=== PATIENT | male | born 1955 | race Caucasian/White ===

== ENCOUNTER 2024-07-03 07:09 | Day surgery (SDC) | payer MEDICARE, BC, SELFPAY ==
[2024-07-03] VITALS (25 sets, daily range): BP systolic 96–137; BP diastolic 67–91; PULSE 44–74; RESP 14–18; TEMP 36.3–36.7; O2SAT 92–98; BMI 27.9
[2024-07-03] MEDS: LACTATED RINGERS 1000 ML 1,000 ML 100 ML IV (07:15)
[2024-07-03] MEDS: OXYCODONE (CR) 10 MG TAB.ER.12H PO (07:15)
[2024-07-03] MEDS: ACETAMINOPHEN 500 MG TABLET 1000 MG PO ×3 (08:00→20:35)
[2024-07-03] MEDS: CELECOXIB 200 MG CAPSULE PO (08:01)
[2024-07-03] MEDS: SODIUM CHLORIDE 0.9 % (FLUSH) 10 ML SYRINGE IVF (08:02)
[2024-07-03] MEDS: fentaNYL 100 MCG/2 ML inj IVP (08:52)
[2024-07-03] MEDS: MIDAZOLAM HCL 1 MG/ML inj IVP (08:52)
--- NOTE | 2024-07-03 08:52 | SUR.PREOP ---
TIME?OUT:?0851 PT/Rose Ladd RN/Dr. Nikhil MDA?VERIFICATION?OF?SURGICAL?SITE right knee,?PROCEDURE,?AND?CONSENT OBTAINED?PRIOR?TO?INVASIVE?PROCEDURE.
--- NOTE | 2024-07-03 08:56 | P.ANES_ITS ---
Anesthesia Charges Start Date/Time Anesthesia Start Date: 07/03/24 Anesthesia Start Time: 09:14 Stop Date/Time Anesthesia Stop Date: 07/03/24 Anesthesia Stop Time: 11:25 Coding CPT Codes CPT Codes: ANESTH KNEE ARTHROPLASTY - 43764 ([id number]) P3 - PATIENT W/SEVERE SYS DISEASE, QK - LIFTER DRIVER 2-4 CNCRNT ANES PROC, QX - STAFF PHARMACIST HOSPITAL SVC W/ MD MED DIRECTION
--- NOTE | 2024-07-03 08:56 | W.ANESCHARGE ---
Anesthesia Charges Start Date/Time Anesthesia Start Date: 07/03/24 Anesthesia Start Time: 09:14 Stop Date/Time Anesthesia Stop Date: 07/03/24 Anesthesia Stop Time: 11:25 Coding CPT Codes CPT Codes: ANESTH KNEE ARTHROPLASTY - 81117 ([id number]) P3 - PATIENT W/SEVERE SYS DISEASE, QK - UPPER AND BOTTOM LACER HAND 2-4 CNCRNT ANES PROC, QX - PAPER CUTTER OPERATOR SVC W/ MD MED DIRECTION
--- NOTE | 2024-07-03 08:57 | W.PM.NB ---
Nerve Block Nerve Block Time Seen by Provider: 08:55 Date Seen: 07/03/24 Type of block requested by surgeon for post-operative analgesia: adductor canal Side: right Time out performed: Yes Verification of patient name: Yes Verification of date of : Yes Site marking: site marked Name of person performing procedure: Nikhil Continuous monitoring Was continuous monitoring of O2 sat, B/P, front desk monitor, recorded every 15 minutes?: Yes Procedure Checklist: sterile prep, needles and gloves Ultrasound guided. Images saved: Yes Medications given in 5ml increments after negative aspiration: Marcaine %: 0.25 mL: 15 Needle gauge: 20 Precedex (mcg): 25 Patient tolerated procedure well: Yes Block Charges Block Charge (with Pro Fee): Femoral Nerve Use of Ultrasound Machine for Block: Yes- US Guidance/pain block
--- NOTE | 2024-07-03 08:57 | W.PM.NB ---
Nerve Block Nerve Block Time Seen by Provider: 08:55 Date Seen: 07/03/24 Type of block requested by surgeon for post-operative analgesia: geniculars Side: right Time out performed: Yes Verification of patient name: Yes Verification of date of : Yes Site marking: site marked Name of person performing procedure: Nikhil Continuous monitoring Was continuous monitoring of O2 sat, B/P, sports cartoonist, recorded every 15 minutes?: Yes Procedure Checklist: sterile prep, needles and gloves Ultrasound guided. Images saved: Yes Medications given in 5ml increments after negative aspiration: Marcaine %: 0.25 mL: 9 Needle gauge: 25 Patient tolerated procedure well: Yes Block Charges Block Charge (with Pro Fee): Genicular Nerve Block
[2024-07-03] MEDS: CEFAZOLIN 1 GM inj IVP (09:27)
[2024-07-03] MEDS: TRANEXAMIC ACID 100 MG/ML INJ 1000 MG IV (09:29)
--- NOTE | 2024-07-03 10:54 | CRLHL7_ITS ---
For Patients: As a result of the Cures Act, medical imaging exams and procedure reports are released immediately into your electronic medical record. You may view this report before your referring provider. If you have questions, please contact your health care provider. Indication: post op TKA Technique: Two views right knee Findings/Impression: Hardware from a right total knee arthroplasty is in satisfactory position. Bone alignment is normal. No sign of acute fracture. Postop changes are within normal limits. Dictated by Fermin Burton MD @ 07/04/2024 10:47:00 AM (Electronically Signed)
--- NOTE | 2024-07-03 10:57 | P.ORPRC_ITS ---
Procedure Note Date of procedure: 07/03/24 Procedure: PREOPERATIVE DIAGNOSIS: Right knee osteoarthritis POSTOPERATIVE DIAGNOSIS: Right knee osteoarthritis NAME OF OPERATION: Right total knee arthroplasty SURGEON: Neal Bose MD GROUP ART SUPERVISOR: ESTELLE Muir Elizabeth Oss, MS4 ANESTHESIA: Spinal ESTIMATED BLOOD LOSS: 0 mL COMPLICATIONS: None SPECIMENS: None DRAINS: None PREOPERATIVE ANTIBIOTICS: Ancef 2 grams IMPLANTS: 1. J&J Attune # 8 posterior stabilized femur 2. # 9 fixed-bearing tibia 3. # 8 posterior stabilized, 6 mm fixed-bearing polyethylene 4. 41 patella INDICATIONS: The patient is a 69-year-old with a longstanding history of severe, unrelenting right knee pain secondary to end-stage (grade IV) right knee osteoarthritis. Despite appropriate nonoperative management, including activity modification, anti-inflammatories, [id number] pain medication, bracing, physical therapy, and injections they continue to have pain and disability. Operative intervention was offered. The risks, benefits and expected outcomes were discussed in detail. These included but were not limited to: Infection, bleeding, injury to blood vessel or nerve, venous thromboembolism. All questions were answered to their satisfaction. Use of an financial administrative assistant was necessary throughout the case for patient positioning and safety, soft tissue retraction, and closure. PROCEDURE: Spinal anesthesia was administered. The patient was placed supine on the operating table. The financial administrative assistant made sure the patient was positioned appropriately. The lower extremity was prepped and draped in the usual sterile fashion. The limb was exsanguinated with the Alex bandage. The pneumatic tourniquet was inflated to 300 mmHg. A standard anterior incision was made with the knee in flexion. Subcutaneous dissection was sharply taken through fascial layer #1. Full-thickness medial and lateral flaps were elevated. The financial administrative assistant retracted the soft tissues and protected them throughout the case. A standard subvastus approach was made. The patella was subluxed. The infrapatellar fat pad was preserved. The menisci and cruciate ligaments were sharply d?brided. Marginal osteophytes were d?brided with the rongeur. The drill was used to penetrate the femoral canal. The canal was aspirated and irrigated with pulse lavage. The intramedullary femoral guide was placed for a 5-degree valgus cut, removing 12 mm off the distal femur. The saw was used to make the cut. Whitesides line and the trans epicondylar axis were marked. The femoral sizing guide was pinned onto the distal femur. Three degrees of external rotation nicely parallels the transepicondylar axis. Pins were placed for posterior referencing. The four-in-one cutting guide was pinned onto the distal femur. The anterior, posterior, and chamfer cuts were made. The financial administrative assistant protected the collateral ligaments. The box cutting guide was pinned. The box cuts were made. The boxed trial was placed and was an excellent fit. Drill holes for the lugs were made. Attention was then turned to the proximal tibia. The extramedullary tibial guide was placed for a neutral varus/valgus cut with 5 degrees of posterior slope, removing 2 mm based off the medial tibial surface. The financial administrative assistant pro tected the collateral ligaments and the neurovascular bundle. The saw was used to make the cut. Trial components were placed. The knee was nicely balanced in both flexion and extension. The trial components were removed. The tray was placed in appropriate rotation, parallel to our tibial cutting pins. It was pinned by the financial administrative assistant and the drill and the punch were used. The tray was removed. The punch was used again. We placed a bone plug in the femoral canal. Attention was then turned to the patella. [place] patellar thickness was 22 mm. The lobster claw resection guide was used with the 7.5 mm ankit. The saw was used to make the cut. Drill holes were made by the financial administrative assistant. The trial was placed and was an excellent fit. Cancellous surfaces were irrigated with pulse lavage and thoroughly dried by the financial administrative assistant. We cemented the tibial component, then the femoral component. We impacted the 6 mm polyethylene onto the tibial tray. The knee was brought into full extension. We then cemented the patellar component. Excessive cement was removed. The cement was allowed to harden. The knee was taken through a range of motion and was found to be nicely balanced in both flexion and extension. The patella tracks centrally. The financial administrative assistant did a three minute dilute Betadine solution soak. The financial administrative assistant irrigated the wound with 3 liters of normal saline via pulse lavage. The financial administrative assistant reapproximated the extensor mechanism with #1 Vicryl in an interrupted [id number] fashion. The financial administrative assistant then ran the extensor mechanism with a #1 PDO Stratafix. The financial administrative assistant closed the subcutaneous tissues with a 3-0 Stratafix and the skin with a running 3-0 Stratafix in a subcuticular fashion. Glue was used to seal the skin. The financial administrative assistant placed a dry dressing. Sponge and needle counts were correct x2. The patient tolerated the procedure well. There were no apparent complications. They were carefully transferred to the hospital bed and taken to the postanest hesia care unit in satisfactory condition. PLAN: The patient will be mobilized with physical therapy. Aspirin will be used for DVT prophylaxis. They will be discharged to home once medically appr opriate.
--- NOTE | 2024-07-03 11:32 | P.ANES_ITS ---
Anesthesia Charges Start Date/Time Anesthesia Start Date: 07/03/24 Anesthesia Start Time: 09:14 Stop Date/Time Anesthesia Stop Date: 07/03/24 Anesthesia Stop Time: 11:25 Coding CPT Codes CPT Codes: ANESTH KNEE ARTHROPLASTY - 17989 ([id number]) P3 - PATIENT W/SEVERE SYS DISEASE, QK - BAKER BISCUIT 2-4 CNCRNT ANES PROC, QX - CHAIRMAN & CO FOUNDER SVC W/ MD MED DIRECTION
--- NOTE | 2024-07-03 11:32 | W.ANESCHARGE ---
Anesthesia Charges Start Date/Time Anesthesia Start Date: 07/03/24 Anesthesia Start Time: 09:14 Stop Date/Time Anesthesia Stop Date: 07/03/24 Anesthesia Stop Time: 11:25 Coding CPT Codes CPT Codes: ANESTH KNEE ARTHROPLASTY - 95251 ([id number]) P3 - PATIENT W/SEVERE SYS DISEASE, QK - COMMERCIAL TIRE SERVICE TECHNICIAN 2-4 CNCRNT ANES PROC, QX - PHYSICAL SCIENCE TEACHER SVC W/ MD MED DIRECTION
[2024-07-03] MEDS: OXYCODONE 5 MG TABLET PO ×3 (12:29→20:42)
[2024-07-03] MEDS: LACTATED RINGERS 1000 ML 1,000 ML 75 ML IV (12:30)
--- NOTE | 2024-07-03 14:12 | PM.IMCN1 ---
Date of Consult Consult date: 07/03/24 Primary Care Provider: Lori Salinas CNP Consult Narrative Narrative: Josue Enciso is a 69 year old male w Past medical history of heart failure with preserved ejection fraction, aortic dilatation, ascending, venous stasis, anxiety and depression. Pt has Hx of Right knee osteoarthritis s/p Right total knee arthroplasty today 07/03. The patient tolerated the procedure well. There were no apparent complications. Patient states that he does not have history of blood clots or bleeding, he is not on any anti- coagulation. When asked about chest discomfort or shortness of breath he said he does not have been now, but at baseline he has chest discomfort and shortness of breath on exertion. 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 Upon reviewing his chart, I found out that he had at Negative angiogram 03/2023. Coronary angiography was performed successfully via the right radial artery approach. This revealed no significant coronary artery disease in the codominant system. The left anterior descending artery was severely calcified, but contained no significant obstruction. Recommendation was cardiac MRI to further evaluate nonischemic HF. Talking to the patient he states that he is planning to do that cardiac MRI in the future. Echo a wk ago showed normal global systolic function with an estimated EF of 55 - 60%. Pt stopped aspirin 1 week prior to surgery & held all other meds this am except for effexor. Patient asked me if he will be charged/billed if he takes the medications that I am going to resume during his stay at the hospital, I talked to the pharmacist and discussed with Josue the risks of not taking medications and he agreed to take them. Review of Systems Status of ROS: Reports: 6 or more systems reviewed and unremarkable except as noted in History and below [facility] Medical History (Updated 07/03/24 @ 16:46 by Matilda Duval MD) Ascending aorta dilation ?I77.810 - Thoracic aortic ectasia (ICD-10) Sinus tachycardia ?R00.0 - Tachycardia, unspecified (ICD-10) Mitral valve insufficiency ?I34.0 - Nonrheumatic mitral (valve) insufficiency (ICD-10) CHF (congestive heart failure) ?I50.9 - Heart failure, unspecified (ICD-10) GERD (gastroesophageal reflux disease) ?K21.9 - Gastro-esophageal reflux disease without esophagitis (ICD-10) Major depressive disorder, single episode, moderate ?F32.1 - Major depressive disorder, single episode, moderate (ICD-10) Chronic HFrEF (heart failure with reduced ejection fraction) ?I50.22 - Chronic systolic (congestive) heart failure (ICD-10) Bilateral carpal tunnel syndrome ?G56.03 - Carpal tunnel syndrome, bilateral upper limbs (ICD-10) Arthritis, low back ?M47.819 - Spondylosis without myelopathy or radiculopathy, site unspecified (ICD-10) Primary osteoarthritis of right knee ?M17.11 - Unilateral primary osteoarthritis, right knee (ICD-10) Displacement of lumbar intervertebral disc without myelopathy ?M51.26 - Other intervertebral disc displacement, lumbar region (ICD-10) Arthritis of right shoulder region ?M19.011 - Primary osteoarthritis, right shoulder (ICD-10) Acquired valgus deformity knee ?M21.069 - Valgus deformity, not elsewhere classified, unspecified knee (ICD-10) Insomnia ?G47.00 - Insomnia, unspecified (ICD-10) Anxiety ?F41.9 - Anxiety disorder, unspecified (ICD-10) Vitamin D deficiency ?E55.9 - Vitamin D deficiency, unspecified (ICD-10) C. difficile enteritis (11/21/08) ?A04.72 - Enterocolitis due to Clostridium difficile, not specified as recurrent (ICD-10) IBS (irritable bowel syndrome) ?K58.9 - Irritable bowel syndrome, unspecified (ICD-10) Pilonidal fistula ?L05.92 - Pilonidal sinus without abscess (ICD-10) Elevated cholesterol ?E78.00 - Pure hypercholesterolemia, unspecified (ICD-10) Skin cancer ?C44.90 - Unspecified malignant neoplasm of skin, unspecified (ICD-10) Surgical History (Updated 07/03/24 @ 14:37 by Matilda Duval MD) Status post lumbar microdiscectomy (10/26/13) ?Z98.890 - Other specified postprocedural states (ICD-10) History of hemilaminectomy (09/11/13) ?Z98.890 - Other specified postprocedural states (ICD-10) History of repair of right rotator cuff (2005) ?Z98.890 - Other specified postprocedural states (ICD-10) History of esophagogastroduodenoscopy (EGD) ?Z98.890 - Other specified postprocedural states (ICD-10) History of nasal surgery ?Z98.890 - Other specified postprocedural states (ICD-10) History of hemilaminectomy (06/2005) ?Z98.890 - Other specified postprocedural states (ICD-10) History of tonsillectomy and adenoidectomy ?Z90.89 - Acquired absence of other organs (ICD-10) Social History What is your current living situation?: I presently have a place to live Problems where you live: no known problems In the past 12 months, utilities in danger of being shut off: no In past 12 months, lack of transportation kept you from medical appts, meetings, work, or getting things needed for daily living: no In the past 12 mos, have been you worried that your food would run out before you had money to buy more?: never true In the past 12 mos, the food you bought just didn't last and you didn't have money to buy more?: never true Highest level of school completed/degree received: some college, no degree Smoking Status: Never smoker How often do you have a drink containing alcohol: never How often do you have six or more drinks on one occasion: Never AUDIT-C Alcohol total score: 0 Non-prescribed substance use: marijuana (any form) Caffeine: Yes (2 bottles mt dew) How often does anyone, including family, friends and others, physically hurt you: never How often does anyone, including family, friends and others, insult or talk down to you: never How often does anyone, including family, friends and others, threaten you with harm: never How often does anyone, including family, friends and others, scream or curse at you: never service: No Meds Home Medications and Allergies Home Medications ?Medication ?Instructions ?Recorded ?Confirmed ?Type aripiprazole 5 mg tablet 5 mg PO QPM 05/30/24 07/03/24 History celecoxib 100 mg capsule (Celebrex) 100 mg PO BID 05/30/24 06/29/24 History clonazepam 1 mg tablet 1 mg PO DAILY PRN 05/30/24 06/29/24 History lisinopril 2.5 mg tablet 2.5 mg PO DAILY 05/30/24 07/03/24 History metoprolol succinate 50 mg 50 mg PO DAILY 05/30/24 07/03/24 History tablet,extended release 24 hr albuterol 90 mcg/actuation aerosol 90 mcg inhalation Q6H PRN 06/29/24 07/03/24 History inhaler aspirin 81 mg capsule 81 mg PO DAILY 06/29/24 07/03/24 History atorvastatin 20 mg tablet (Lipitor) 20 mg PO QHS 06/29/24 07/03/24 History buspirone 10 mg tablet 10 mg PO BID 06/29/24 07/03/24 History furosemide 20 mg tablet 20 mg PO BID 06/29/24 07/03/24 History hydroxyzine pamoate 25 mg capsule 25 mg PO TID PRN 06/29/24 06/29/24 History (Vistaril) omeprazole 20 mg capsule,delayed 20 mg PO DAILY 06/29/24 07/03/24 History release potassium chloride 10 mEq 20 meq PO DAILY 06/29/24 07/03/24 History capsule,extended release trazodone 50 mg tablet 50 mg PO HS PRN 07/03/24 07/03/24 History Allergies Allergy/AdvReac Type Severity Reaction Status Date / Time No Known Drug Allergies Allergy Verified 07/03/24 07:21 Exam Narrative: Exam Narrative: Physical exam GENERAL: Comfortable, no acute distress. HEAD AND NECK: Atraumatic, normocephalic CARDIOVASCULAR: Normal S1, S2. No murmurs. RESPIRATORY: Clear to auscultation B/L. Good air entry B/L. No wheezes or rhonchi. NEUROLOGY: Alert, awake, oriented X 3. Normal speech. PSYCH: Normal mood, normal affect. Const: Vital Signs, click to edit/add: Vital Signs - 24 hr 07/03/24 08:07 07/03/24 08:51 07/03/24 08:55 Temperature 97.7 F Pulse Rate 46 L 46 L 44 L Pulse Rate [Pulse Oximeter] Respiratory Rate 16 14 14 Blood Pressure 108/80 110/83 101/76 Blood Pressure [Ri ght Arm] Pulse Oximetry 93 95 96 Oxygen Delivery Me thod Room Air Nasal Cannula Nasal Cannula Oxygen Flow Rate 2 2 07/03/24 09:00 07/03/24 11:20 07/03/24 11:25 Temperature 97.6 F Pulse Rate 44 L 62 52 L Pulse Rate [Pulse Oximeter] Respiratory Rate 14 16 16 Blood Pressure 96/71 108/74 109/79 Blood Pressure [Ri ght Arm] Pulse Oximetry 94 94 94 Oxygen Delivery Me thod Nasal Cannula Room Air Room Air Oxygen Flow Rate 2 07/03/24 11:30 07/03/24 11:35 07/03/24 11:40 Temperature Pulse Rate 52 L 50 L 50 L Pulse Rate [Pulse Oximeter] Respiratory Rate 16 16 16 Blood Pressure 114/83 129/88 134/89 Blood Pressure [Ri ght Arm] Pulse Oximetry 92 92 95 Oxygen Delivery Me thod Room Air Room Air Room Air Oxygen Flow Rate 07/03/24 11:45 07/03/24 11:50 07/03/24 12:00 Temperature 97.6 F 97.6 F 97.7 F Pulse Rate 50 L 50 L Pulse Rate [Pulse Oximeter] 51 L Respiratory Rate 16 16 16 Blood Pressure 137/87 125/91 H Blood Pressure [Ri ght Arm] 130/82 Pulse Oximetry 95 95 95 Oxygen Delivery Me thod Room Air Room Air Room Air Oxygen Flow Rate 07/03/24 12:00 Temperature 97.7 F Pulse Rate 51 L Pulse Rate [Pulse Oximeter] Respiratory Rate 16 Blood Pressure 130/82 Blood Pressure [Ri ght Arm] Pulse Oximetry 95 Oxygen Delivery Me thod Room Air Oxygen Flow Rate Assessment and Plan Assessment and plan (1) Status post right knee replacement: Problem comment: -Pt has Hx of Right knee osteoarthritis s/p Right total knee arthroplasty today 07/03. The patient tolerated the procedure well. There were no apparent complications. -Start early ambulation with physical therapy. -Start DVT prophylaxis tonight w/ Aspirin 81 mg BID. -Monitor for urine output postoperatively, bladder scan if needed. -Encourage incentive spirometry. Status: Acute (2) Heart failure with preserved ejection fraction: Problem comment: -ECG: positive stress test 02/2023. Negative angiogram 03/2023. Coronary angiography was performed successfully via the right radial artery approach. This revealed no significant coronary artery disease in the codominant system. The left anterior descending artery was severely calcified, but contained no significant obstruction. Recommendation was cardiac MRI to further evaluate nonischemic HF. Talking to the patient he states that he is planning to do that cardiac MRI. Echo 06/27/24 Final Impressions: 1. Normal LV size, mildly increased wall thickness, normal global systolic function with an estimated EF of 55 - 60%. 2. Mildly enlarged left atrium. 3. Right ventricular cavity size is normal, global systolic RV function is normal. 4. No significant valve disease detected. 5. IVC morphology suggests normal RA pressure. 6. Dilated ascending aorta, diameter of 4.5 cm (upper limit of normal for age, sex, and BSA is 4.2 cm*), Height Index 2.46. Status: Acute (3) Ascending aorta dilation: Problem comment: As above Status: Acute (4) Noncompliance with medication regimen: Problem comment: Patient states that he does not believe in a lot of medical approach and treatment, and that he does not take his medication as prescribed and a lot of times would just go by without taking them. Status: Acute (5) Primary osteoarthritis of right knee: Problem comment: As above Status: Acute (6) Major depressive disorder, single episode, moderate: Problem comment: -on aripiprazole, venlafaxine & buspiron but he states that he is not compliant with his medications specially Hospital on he takes it p.r.n. Status: Acute (7) Anxiety: Problem comment: -on aripiprazole, venlafaxine & buspiron but he states that he is not compliant with his medications specially Hospital on he takes it p.r.n. Status: Acute Total Time Spent Total Time Spent: Time spent: Today I spent 75 minutes seeing the patient, discussing the patient with ER staff, reviewing Expanse and EPIC notes/diagnostics, discussing the care plan with our care time that includes social work, PT/OT, pharmacy, RT, assisted and documenting my impressions and plan in the medical record.
[2024-07-03] MEDS: CEFAZOLIN 2 GM in 0.9 % SODIUM CHLORIDE Mini-bag 100 ML IVPB ×2 (15:22→23:57)
--- NOTE | 2024-07-03 18:44 | PC.NURSE ---
Pt is doing well today. VSS with sinus bradycardia. Pain is controlled well with PRN medications. Tolerating oral intake well. Ambulating with stand by assist and moving very well. Surgical dressing remains clean, dry and intact. Pt is resting well at this time.
[2024-07-03] MEDS: SENNOSIDES 1 TAB TABLET 2 TAB PO (20:35)
[2024-07-03] MEDS: ASPIRIN 81 MG TABLET EC PO (20:35)
[2024-07-03] MEDS: ATORVASTATIN CALCIUM 10 MG TABLET 20 MG PO (20:35)
[2024-07-03] MEDS: BUSPIRONE 10 MG TABLET PO (20:35)
[2024-07-03] MEDS: ARIPiprazole 10 MG TABLET 5 MG PO (20:42)
--- NOTE | 2024-07-03 21:58 | PC.NURSE ---
This nurse went to patient's room as bed alarm was going off, knocked on door and walked in. Patient stated immediately that he doesn't need any help going to the bathroom and does not need to use that stuff pointing to the gait belt and the walker. This nurse walked along side him to the bathroom and patient stated that he can not go to the bathroom if he knows someone is standing outside the door. Instructed patient that if he pulls the cord in the bathroom when he was done we can wait outside of the room. Patient stated that if anyone comes in to the room before he goes to the bathroom he will be unable to go. Patient continued to walk around the room without the walker. Provided education about safety after knee replacement to prevent falls.
[2024-07-04] MEDS: OXYCODONE 5 MG TABLET PO ×2 (00:06→08:50)
--- NOTE | 2024-07-04 01:48 | PC.NURSE ---
Around 2129 patient's bed alarm went off. RN entered room shortly after WHITNEY Smith entered room. Patient unwilling to utilize walker and gait belt. Patient also does not want anyone in or by his room while he is in the bathroom because I cannot go to the bathroom if I know someone is waiting there. RN explained once patient is in the bathroom, staff can leave and patient can pull the red cord to let staff know he is done. Patient educated on importance of following MD's guidelines for safety by using the walker and gait belt. Patient got upset and pointed his finger and said I don't need any help! I don't need to use that thing! pointing at the walker. RN asked patient to not raise his voice at staff. Patient states he will just walk right out of here and leave. RN informed patient that that is his right if he chooses but for his safety should stay the night. Patient got increasingly hostile. Security called and presented patient with the code of conduct. Chanelle Juarez updated.
[2024-07-04 03:00] VITALS: BP 118/86; PULSE 75; RESP 18; TEMP 36.5; O2SAT 91
[2024-07-04] MEDS: ACETAMINOPHEN 500 MG TABLET 1000 MG PO ×2 (03:06→08:51)
[2024-07-04 06:12] LABS: Basophils Percent Auto 0.2 % (0.0-3.0); Eosinophils Percent Auto 0.3 % (0.0-7.0); Hematocrit 34.2 % (37.0-53.0); Hemoglobin* 11.5 gm/dL (13.5-17.5); Immature Granulocytes Pct Auto 0.9 %; Lymphocytes Percent Auto 12.4 % (20-44); Mean Corpuscular HGB Conc 34 gm/dL (32-36); Mean Corpuscular Hemoglobin 31 pg (26-34); Mean Corpuscular Volume 91 fL (80-100); Monocytes Percent Auto 8.8 % (0.0-11.0); Neutrophils Percent Auto 77.4 % (42.0-72.0); Platelet Count* 180 K/uL (140-440); RDW Coefficient of Variation % 12.1 % (11.5-15.5); Red Blood Count 3.75 m/uL (4.30-5.90); White Blood Count* 11.77 K/uL (4.50-11.00)
[2024-07-04 06:15] LABS: Slide Review Reflex No
[2024-07-04 06:26] LABS: Potassium* 4.1 mmol/L (3.6-5.1); Sodium* 134 mmol/L (135-149)
[2024-07-04 06:29] LABS: Blood Urea Nitrogen* 26 mg/dL (7-30); Creatinine* 0.7 mg/dL (0.5-1.5); Est. Creatinine Clearance* 83.34; Estimated Glomerular Filt Rate 101 ml/min; INR 0.94 (0.91-1.10); Prothrombin Time 13.3 Seconds
[2024-07-04 07:00] VITALS: BP 111/78; PULSE 78; RESP 18; TEMP 36.5; O2SAT 97
--- NOTE | 2024-07-04 07:19 | PC.NURSE ---
Shift note ([id number]):?Patient alert and oriented.?Up ad ronak in room independently. Refused?Telemetry and SCD?s. Given PRN Oxycodone for pain in right knee rated 7/10. Ice pack applied. Dressing clean, dry and intact. ?
--- NOTE | 2024-07-04 07:40 | P.ORPN_ITS ---
Subjective Subjective Time Seen by Provider: 07:40 Date Seen: 07/04/24 Principal diagnosis: Status post right knee replacement Interval history: Josue is looking forward to going home today. He moves about easily. He is comfortable, however has some medial and lateral discomfort about the knee. He would like to go home as soon as possible. Ortho Exam Narrative Exam Narrative: Alert and oriented x3. Patient is in no acute distress. Converses without labored breathing. Hearing is grossly intact. Ambulates with a walker. Examination of the right knee shows the dressing is intact. Large hematoma anterior knee. He is easily able to straight leg raise. He is easily able to get out of bed and get to his walker and walk about the room. No erythema or warmth or sign of infection. Calves are soft and nontender. CMS is intact right lower extremity. Const Vital Signs, click to edit/add: Vital Signs - 24 hr 07/03/24 08:07 07/03/24 08:51 07/03/24 08:55 Temperature 97.7 F Pulse Rate 46 L 46 L 44 L Pulse Rate [Pulse Oximeter] Respiratory Rate 16 14 14 Blood Pressure 108/80 110/83 101/76 Blood Pressure [Right Arm] Pulse Oximetry 93 95 96 Oxygen Delivery Method Room Air Nasal Cannula Nasal Cannula Oxygen Flow Rate 2 2 07/03/24 09:00 07/03/24 11:20 07/03/24 11:25 Temperature 97.6 F Pulse Rate 44 L 62 52 L Pulse Rate [Pulse Oximeter] Respiratory Rate 14 16 16 Blood Pressure 96/71 108/74 109/79 Blood Pressure [Right Arm] Pulse Oximetry 94 94 94 Oxygen Delivery Method Nasal Cannula Room Air Room Air Oxygen Flow Rate 2 07/03/24 11:30 07/03/24 11:35 07/03/24 11:40 Temperature Pulse Rate 52 L 50 L 50 L Pulse Rate [Pulse Oximeter] Respiratory Rate 16 16 16 Blood Pressure 114/83 129/88 134/89 Blood Pressure [Right Arm] Pulse Oximetry 92 92 95 Oxygen Delivery Method Room Air Room Air Room Air Oxygen Flow Rate 07/03/24 11:45 07/03/24 11:50 07/03/24 12:00 Temperature 97.6 F 97.6 F 97.7 F Pulse Rate 50 L 50 L Pulse Rate [Pulse Oximeter] 51 L Respiratory Rate 16 16 16 Blood Pressure 137/87 125/91 H Blood Pressure [Right Arm] 130/82 Pulse Oximetry 95 95 95 Oxygen Delivery Method Room Air Room Air Room Air Oxygen Flow Rate 07/03/24 12:00 07/03/24 12:15 07/03/24 12:30 Temperature 97.7 F Pulse Rate 51 L 49 L Pulse Rate [Pulse Oximeter] Respiratory Rate 16 16 16 Blood Pressure 130/82 127/85 118/67 Blood Pressure [Right Arm] Pulse Oximetry 95 96 97 Oxygen Delivery Method Room Air Oxygen Flow Rate 07/03/24 12:45 07/03/24 13:00 07/03/24 13:30 Temperature Pulse Rate 44 L 48 L 46 L Pulse Rate [Pulse Oximeter] Respiratory Rate 16 Blood Pressure 124/85 110/73 110/73 Blood Pressure [Right Arm] Pulse Oximetry 95 Oxygen Delivery Method Oxygen Flow Rate 07/03/24 14:00 07/03/24 15:00 07/03/24 15:00 Temperature Pulse Rate 55 L 47 L Pulse Rate [Pulse Oximeter] Respiratory Rate Blood Pressure 117/89 Blood Pressure [Right Arm] Pulse Oximetry 98 Oxygen Delivery Method Room Air Oxygen Flow Rate 07/03/24 15:00 07/03/24 16:00 07/03/24 17:00 Temperature Pulse Rate 67 54 L 52 L Pulse Rate [Pulse Oximeter] Respiratory Rate Blood Pressure 110/87 112/78 110/78 Blood Pressure [Right Arm] Pulse Oximetry Oxygen Delivery Method Oxygen Flow Rate 07/03/24 18:00 07/03/24 20:33 07/03/24 23:00 Temperature 97.4 F L Pulse Rate Pulse Rate [Pulse Oximeter] 58 L Respiratory Rate 16 18 Blood Pressure 128/84 Blood Pressure [Right Arm] 112/85 Pulse Oximetry 93 92 Oxygen Delivery Method Room Air Room Air Oxygen Flow Rate 07/03/24 23:47 07/04/24 03:00 Temperature 98.1 F 97.7 F Pulse Rate Pulse Rate [Pulse Oximeter] 74 75 Respiratory Rate 18 18 Blood Pressure Blood Pressure [Right Arm] 106/79 118/86 Pulse Oximetry 92 91 Oxygen Delivery Method Room Air Room Air Oxygen Flow Rate Assessment and Plan Assessment and plan (1) Status post right knee replacement: Problem details: -date of surgery 07/03/2024, Dr. Bose Status: Acute Assessment and Plan: Plan for discharge is today to home when he meets discharge criteria. DVT prophylaxis includes aspirin 81 mg twice daily x1 month, Compression stockings as needed for swelling. Frequent ambulation, every hour throughout the day. Remove dressing in 1 week. Observe wound and phone Orthopedics with any ques tions or concerns Return to clinic in 1 week for a wound check Return to clinic in 6 weeks with surgeon Minimize narcotic use. Wean off and discontinue soon as possible. Activities as tolerated. No strenuous activity. Outpatient physical therapy as scheduled. Ice and elevate the operative extremity. No restriction on ice. Josue requested Percocet rather than oxycodone. He states he does not need aspirin 81 mg sent to his pharmacy, for he has plenty at home. He is aware that he will be taking aspirin 81 mg twice daily for 30 days then he can resume his normal dose of once daily. He states he does not need Tylenol sent his pharmacy either. He is aware the Percocet has acetaminophen in it. Therefore Orthopedic medications sent to his pharmacy include Percocet and senna. Anterior hematoma will resolve with time. If excessive, this can be drained in the clinic setting in a week. He states he may not have a ride to the clinic next week. He will call us with any questions or concerns.
[2024-07-04] MEDS: METOPROLOL SUCCINATE (XL) 50 MG TAB PO (08:51)
[2024-07-04] MEDS: BUSPIRONE 10 MG TABLET PO (08:51)
[2024-07-04] MEDS: ASPIRIN 81 MG TABLET EC PO (08:51)
[2024-07-04] MEDS: OMEPRAZOLE 20 MG CAPSULE DR PO (08:51)
[2024-07-04] MEDS: VENLAFAXINE ER 75 MG CAPSULE 300 MG PO (08:51)
[2024-07-04] MEDS: POTASSIUM CHLORIDE 10 MEQ CAPSULE ER 20 MEQ PO (08:51)
[2024-07-04] MEDS: SENNOSIDES 1 TAB TABLET 2 TAB PO (08:51)
[2024-07-04] MEDS: lisinopriL 5 MG TABLET 2.5 MG PO (08:51)
--- NOTE | 2024-07-04 09:43 | PC.SOCIAL ---
Discharge Planning: Patient reports that he is doing well and doesn't have any concerns for home. Patient states he has everything pre-arranged. When SW was in the room patient received a call from [employer] about his oxycodone being delayed due to insurance. Patient had questions for the RN about this as he had been told his oxycodone would be changed to Percocet. SW explained that she would inform the RN so that she could discuss this with him. SW updated patient's RN.
--- NOTE | 2024-07-04 10:48 | PC.NURSE ---
Discharge: Patient a/o x4. VSS. on RA tolerating a reg diet. Patient's dressing to right knee C/D/I. Patient discharged today at 1045 to home accompanied by friend. IV removed intact. Belongings sheet signed and discharge paperwork signed. Patient verbalized understanding of discharge instructions.
== END 2024-07-04 10:45 | disposition home or self-care (01) ==
LOC: OR 07:10 → MEDSURG 07:11
PROVIDERS: PCP Nurse Practitioner Family; Visit Provider Orthopaedic Surgery
PROC: (CPT 27447; principal; 2024-07-03 09:00)
DX: M17.11 Unilateral primary osteoarthritis, right knee (principal); G89.18 Other acute postprocedural pain; Z79.82 Long term (current) use of aspirin; I77.810 Thoracic aortic ectasia; K21.9 Gastro-esophageal reflux disease without esophagitis; I50.22 Chronic systolic (congestive) heart failure; I50.32 Chronic diastolic (congestive) heart failure; Z91.148 Patient's other noncompliance with medication regimen for other reason; F32.1 Major depressive disorder, single episode, moderate; F41.9 Anxiety disorder, unspecified; F32.A Depression, unspecified
CPT/HCPCS: 27447; 01402; 36415; 64447; 64454; 73560; 76942; 82565; 84132; 84295; 84520; 85025; 85610; 97110; 97116; 97161; 97165; A9270; C1776; J0665; J0690; J1100; J2250; J2371; J2405; J2704; J3010; J7120

== ENCOUNTER 2024-07-20 14:01 | Outpatient (CLI) | payer MEDICARE, BC, SELFPAY ==
--- NOTE | 2024-07-20 14:00 | CRLHL7_ITS ---
For Patients: As a result of the Century Cures Act, medical imaging exams and procedure reports are released immediately into your electronic medical record. You may view this report before your referring provider. If you have questions, please contact your health care provider. INDICATION: Leg pain and swelling TECHNIQUE: Ultrasound venous duplex lower right extremity. Compression venous exam was performed using valiente-scale, color Doppler, and spectral Doppler imaging. COMPARISON: None. FINDINGS: Sonographic imaging demonstrates the right common femoral, deep femoral, superficial femoral, popliteal, posterior tibial and greater saphenous and the contralateral left common femoral veins to be fully compressible with normal color Doppler blood flow. IMPRESSION: Normal right lower extremity venous ultrasound, no sign of deep venous thrombosis. Dictated by Jayson Florentino MD @ 07/20/2024 3:02:42 PM (Electronically Signed)
== END 2024-07-20 14:02 | disposition home or self-care (01) ==
PROVIDERS: PCP Nurse Practitioner Family; Visit Provider Physician Assistant
DX: M79.604 Pain in right leg (principal); M79.89 Other specified soft tissue disorders; Z96.651 Presence of right artificial knee joint
CPT/HCPCS: 93971